=== PATIENT | female | born 1955 ===

== ENCOUNTER 2018-08-15 10:18 | Outpatient (CLI) | payer OTHER | END 2018-08-15 10:19 | disposition home or self-care (01) | LOC: BICMAMMO 10:18 | PROVIDERS: ATTEND Obstetrics & Gynecology | DX: Z12.31 Encounter for screening mammogram for malignant neoplasm of breast (principal); Z80.3 Family history of malignant neoplasm of breast | CPT/HCPCS: 77063; 77067 ==